=== PATIENT | female | born 1985 | race African-American/Black ===

== ENCOUNTER 2019-12-28 16:00 | Emergency (ER) | payer MEDICAID ==
[~2019-12-28] VITALS: Ht 170.2 cm; Wt 61.9 kg
[2019-12-28] MEDS ORDERED: HYDROCODONE/APAP 7.5/325MG 1 TAB TABLET PO ONE (19:00)
[2019-12-28] MEDS ORDERED: IBUPROFEN 600MG TABLET PO ONE (19:00)
[2019-12-28 20:06] VITALS: BP 111/57
== END 2019-12-28 20:09 | disposition home or self-care (01) ==
LOC: ER 16:00
DX: S52.571A Other intraarticular fracture of lower end of right radius, initial encounter for closed fracture (principal); W19.XXXA Unspecified fall, initial encounter; Y93.9 Activity, unspecified; Y92.9 Unspecified place or not applicable; R03.0 Elevated blood-pressure reading, without diagnosis of hypertension
CPT/HCPCS: 29125; 73110; 81025; 99283; Z7610; A4565